=== PATIENT | male | born 1985 | race Caucasian/White ===

== ENCOUNTER 2016-11-19 13:54 | Emergency (ER) | payer SELFPAY ==
[2016-11-19 18:33] LABS: AMPHETAMINE QUAL UR NONE DETECTED (NEG <=1000)
[2016-11-19 18:44] VITALS: BP 97/69
== END 2016-11-19 18:44 | disposition home or self-care (01) ==
LOC: ED 13:54
PROVIDERS: Emergency Medicine
DX: J45.901 Unspecified asthma with (acute) exacerbation (principal); F17.200 Nicotine dependence, unspecified, uncomplicated; Z88.0 Allergy status to penicillin; Z79.51 Long term (current) use of inhaled steroids
CPT/HCPCS: J7512; J7644; Q0092

== ENCOUNTER 2018-04-10 21:27 | Emergency (ER) | payer MEDICAID ==
[~2018-04-10] VITALS: Ht 167.6 cm; Wt 55.3 kg
[2018-04-10 22:44] VITALS: BP 124/90
== END 2018-04-10 22:44 | disposition home or self-care (01) ==
LOC: ED 21:27
DX: J45.901 Unspecified asthma with (acute) exacerbation (principal); Z88.0 Allergy status to penicillin
CPT/HCPCS: J7644